=== PATIENT | male | born 2000 | race African-American/Black ===

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

== ENCOUNTER 2024-10-16 16:56 | Emergency (ER) | payer OTHER | END 2024-10-16 18:19 | LOC: ERS 16:56 | DX: S10.93XA Contusion of unspecified part of neck, initial encounter (principal); S09.90XA Unspecified injury of head, initial encounter; W22.8XXA Striking against or struck by other objects, initial encounter | CPT/HCPCS: 70450; 72125 ==